=== PATIENT | female | born 1950 | race Caucasian/White ===

== ENCOUNTER → 2018-02-08 09:42 | Outpatient (CLI) | payer OTHER, SELFPAY ==
--- NOTE | 2018-02-08 | DI.MG.S_ITS ---
BILATERAL DIGITAL SCREENING MAMMOGRAM 3D/2D WITH CAD: 02/08/2018 CLINICAL: Routine screening. Family history of breast cancer. Comparison is made to exams dated: 02/04/2017 mammogram, 12/12/2015 mammogram, and 03/29/2014 mammogram - [facility]. There are scattered fibroglandular elements in both breasts. Current study was also evaluated with a Computer Aided Detection (CAD) system. No significant masses, calcifications, or other findings are seen in either breast. There has been no significant interval change. IMPRESSION: NEGATIVE There is no mammographic evidence of malignancy. A 1 year screening mammogram is recommended. NOTE: For mammograms, a report in lay terms will be sent to the patient. Approximately 15% of breast malignancies will not be visualized mammographically. In the management of a palpable breast mass, a negative mammogram must not discourage biopsy of a clinically suspicious lesion. Electronically Signed By: Gerardo king/pat:02/08/2018 12:35:50 letter sent: Normal Exam ACR BI-RADS Category 1: Negative [id number]
== END ==
PROVIDERS: PCP Physician Assistant Medical
DX: Z12.31 Encounter for screening mammogram for malignant neoplasm of breast (principal); Z80.3 Family history of malignant neoplasm of breast
CPT/HCPCS: 77063; 77067

== ENCOUNTER → 2018-11-01 11:00 | Outpatient (CLI) | payer OTHER, SELFPAY ==
--- NOTE | 2018-11-01 | DI.MRI.S_ITS ---
PROCEDURE: MR LUMBAR SPINE WO CON INDICATIONS: Sacroiliitis,low back pain TECHNIQUE: Noncontrast sagittal T1 spin echo and T2 fast echo, sagittal STIR, axial T1 and T2 fast spin echo through the lumbar spine. Axial and oblique coronal T1 spin echo and STIR through the sacrum. In cases with scoliosis, additional coronal T2 fast spin echo may be performed. COMPARISON: [facility], MR, L-SPINE WITHOUT CONTRAST, 11/08/2012, 14:20. FINDINGS: Image quality: Excellent. Alignment and Curvature: There is minimal retrolisthesis at L1-L2, L2-L3, and L3-L4. Moderate levoconvex lumbar scoliosis is seen. Bone Marrow: The bone marrow is diffusely heterogeneous. No focally suspicious bone marrow lesions can be seen.. Fatty metaplasia can be seen of the sacrum. No edema can be seen involving the sacroiliac joints. Spinal Cord: Conus medullaris terminates at the L1 level. Visualized cord demonstrates normal signal and size. Paraspinous Soft Tissues: No paravertebral masses. T12-L1: Moderate loss of disc height is seen. Loss of disc signal is seen. Zmrc-ee-qrzayxjd disc bulge is seen at this level. No significant neural foraminal or central canal narrowing can be seen. When comparison is made with the prior examination, these findings are similar. L1-L2: Mild to moderate loss of disc height and disc signal are seen. Moderate disc bulge is seen, which is eccentric to the left. There is mild right-sided and no significant left-sided neural foraminal narrowing seen. Minimal to mild central canal narrowing is seen. When comparison is made with the prior examination, these findings are similar. L2-L3: Mild loss of disc height is seen. Loss of disc signal is seen. Ybmg-ly-qefvwkmp disc bulge is seen. There is mild to moderate bilateral neural foraminal narrowing seen. Mild to moderate central canal narrowing is seen. Stable from the prior study. L3-L4: The disc height is well-preserved. Loss of disc signal is seen at this level. Moderate generalized disc bulge is seen. Mild to moderate facet hypertrophy is seen. There is mild to moderate left-sided and no significant right-sided neural canal narrowing seen. Moderate central canal narrowing is seen. These imaging findings have progressed compared to the prior study. L4-L5: Mild loss of disc height is seen. Loss of disc signal is seen. Moderate generalized disc bulge is seen. Mild facet joint hypertrophy is seen. Mild bilateral neural foraminal narrowing is seen, left worse than right. Minimal central canal narrowing is seen. When comparison is made with the prior examination, these findings are similar. L5-S1: Moderate loss of disc height is seen. Loss of disc signal is seen. Moderate disc bulge is seen, which is eccentric to the left. Gcub-eg-yiaaceul facet hypertrophy is seen. There is moderate right-sided and moderate to severe left-sided neural foraminal narrowing seen. There is a degree of compression seen upon the exiting left L5 nerve root. No significant central canal narrowing is seen. When comparison is made with the prior examination, these findings are similar. Sacrum: Sacral neural foramina appear normal throughout. Superior to the piriformis muscles, the pre-plexal structures appear normal, including the lumbosacral trunk and S1 root. Just anterior to the piriformis muscles, the sacral plexus proper demonstrates normal morphology (lumbosacral trunk, S1 to S3 nerve roots). Inferior to the piriformis muscles, the sciatic nerves appear normal. IMPRESSION: Multiple levels of lumbar spine degenerative change are seen, which are mildly progressed at L3-L4, yet otherwise appear similar to 2013. The bone marrow is diffusely heterogeneous, without focally suspicious lesions identified. Moderate levoconvex thoracolumbar scoliosis. No significant sacral abnormality can be seen. Dictated by: Larry Reyes M.D. on 11/01/2018 at 11:55 Approved by: Larry Reyes M.D. on 11/01/2018 at 12:02
== END ==
PROVIDERS: PCP Family Medicine Geriatric Medicine; Referring Provider Dentist Orthodontics and Dentofacial Orthopedics; Visit Provider Physician Assistant Medical
DX: M46.1 Sacroiliitis, not elsewhere classified (principal); M54.5 Low back pain; M47.816 Spondylosis without myelopathy or radiculopathy, lumbar region; M41.85 Other forms of scoliosis, thoracolumbar region
CPT/HCPCS: 72148

== ENCOUNTER 2019-05-02 09:45 | Outpatient (RCR) | payer MEDICARE, SELFPAY ==
--- NOTE | 2019-03-16 16:00 | PT.OIE ---
Current Diagnoses Mixed incontinence (03/16/19) Past Medical History (Last Updated 06/19/18 @ 10:58 by Balbir Candelaria MD) Fibromyalgia (Acute) Osteoarthrosis (Acute) Past Surgical History (Last Updated 06/19/18 @ 10:59 by Balbir Candelaria MD) History of hip replacement (Acute) History of knee replacement (Acute) S/P total abdominal hysterectomy and bilateral salpingo-oophorectomy Status post appendectomy Visit Care Team Role Provider Type Mehnaz Max MD Attending Provider Physician Primary Care Provider Specialty: Family Practice Address: [facility] [address], [address] [place] [address], [place], [address] Email: [email or web address] Initial Evaluation PT-OP-A Visit Information Start: 03/16/19 12:59 Freq: Status: Active Protocol: Document 03/16/19 15:32 EG (Rec: 03/16/19 16:12 EG [email or web address]) Out-Patient Physical Therapy Visit Information Visit Information Visit Type Initial Evaluation Visit Start Time 11:00 Visit Stop Time 12:00 Total Visit Minutes 60 Visit Number 1 Evaluation Information Evaluation Date 03/16/19 PT-OP-B Current Condition Start: 03/16/19 12:59 Freq: Status: Active Protocol: Document 03/16/19 15:32 EG (Rec: 03/16/19 16:12 EG [email or web address]) Current Condition History of Current Condition Onset Date August 2018 Current Complaints Urinary Urge Incontinence and Fecal incontinence History of Current Condition Patient is a 68 year old female who reports to physical therapy for having frequent urination urges in the past couple of months. The patient reports getting multiple UTI's in October and did not know what they were coming from. She is currently sexually active and has been for years and had never had that problem . She has reported urinary incontinence in the past after having knee and hip surgery but this has always gone away. After the UTI's the patient had increased urge to void and this has continued until now with a frequency (with leakage ) of 3-5x a day and around 3x per night. The patient reports that running water does increase urge to go to the bathroom and walking 18-20 feet causes her to leak all the way to the bathroom. The patient has frequent leaks of urine where she does need to change her clothes because the leak was that large. The patient also reports hacing the sensation of not fully emptying but has a steady stream of urine that lasts greater than 10 seconds each time she voids. The patient reports that fecal incontinence seemed to start after she had a colonoscopy a couple months ago and since then she has had it here and there with last report of leakage last week. She has not figured out what is causing this and sometimes does not feel when this leakage happens . The patient also reports having an urge to have a BM when having sexual intercourse . The patient then reported to the MD after the UTI and had a cystoscopy to rule out bladder cancer. The patient also had an US done in early november to check position of bladder. Patient has a history of a hysterectomy with oophorectomy as well as a bladder sling almost 30 years ago. After ruling out cancer, [facility] and was told to strengthen pelvic floor. Her insurance changed and had to change to another physical therapist. She did buy Attain (device for pelvic floor biofeedback and NMES) and this seems to be helping with urge since starting this 3 weeks ago. Patient is currently on the Keto Diet and has lost 21 pounds in the last month. Patient also reports history of childhood trauma. Patient plans on seeing another Urologist in the coming weeks. Prior Treatments and Tests Antibiotics for UTI D-mannose and Cranberry for UTI prevention Cystoscopy Core Physio Pelvic Floor PT Attain (biofeedback NMES) US of bladder placement Future Testing and Treatments Planned See Urologist Treatment Goals Patient/Caregiver Goals Free of incontinence Prior Functional Status Baseline Function- ADL's Independent Baseline Function- Mobility Independent Baseline Function- Gait I Baseline Function- Work/School Homemaker Baseline Function- Recreation/Hobbies I Current Functional Impairments (Reported) Functional Limitations- ADL's Urge for BM with sexual intercourse Functional Limitations- Recreation/ Frequent disturbance through Hobbies day when participating in hobbies due to need to change clothes because of urinary leakage Personal Factors Other Personal Factors That May Effect History of Fibromyalgia Therapy/Recovery History of childhood trauma Arthritis Depression Headaches Thyroid Disorder PT-OP-C Subjective Start: 03/16/19 12:59 Freq: Status: Active Protocol: Document 03/16/19 15:32 EG (Rec: 03/16/19 16:12 EG [email or web address]) Patient Questionnaires Pelvic Pain and Urgency/Frequency Patient Symptom Scale Pelvic Pain Score 18 OP-PT Pain Assessment Pain Assessment Grid Paper Pain Assessment Grid Completed Yes: 4 for Flank Pain; 7 for SIJ pain PT-OP-I Pelvic Floor Start: 03/16/19 12:59 Freq: Status: Active Protocol: Document 03/16/19 11:15 AMB (Rec: 03/16/19 16:10 AMB [email or web address]) Pelvic Floor Assessment Urine Pelvic Floor Surgery Yes: hysterectomy, oophorectomy, bladder sling Urinary Symptoms Urge Sensation,Dribbling After Urination Leakage Size Large Leakage Cause Urge Other Leakage Causes walking to the toilet Leaks Per Day 5 Nocturia 3 Pads Used In 24 Hours brings a change of clothes Bowel Bowel Symptoms Fecal Leakage Other Bowel Symptoms intermittent, difficulty holding back gas, denies current constipation Pelvic Clock Pelvic Clock 3-6 Tenderness Pelvic Clock 6-9 Tenderness Prolapse Rectocele Grade 1 Perineal Descent Resting Absent Bearing Present Contraction Ability Voluntary Contraction Weak Voluntary Relaxation Moderate Manual Muscle Testing Left 2 Manual Muscle Testing Right 2 Manual Muscle Testing Anterior 2 Manual Muscle Testing Posterior 2 Muscle Endurance (Seconds) 5 Number of Quick Contractions In 10 5 Seconds Comments Pelvic Floor Comments Pressure with palpation on posterior wall of vagina, but no specific tenderness PT-OP-T Assessment and Plan Start: 03/16/19 12:59 Freq: Status: Active Protocol: Document 03/16/19 11:15 AMB (Rec: 03/18/19 11:38 AMB [email or web address]) Physical Therapy Assessment Rehab Potential Rehabilitation Potential Good Evaluation Complexity Number of Personal Factors/Comorbidities 3 or More Number of Body Systems Impaired 3 Clinical Presentation at Evaluation Evolving Impairments Impairments Activity Tolerance,Functional Activities,Strength Goals Two Impairment Continence- fecal Short Term Goal (STG) Lyndsey will improve her pelvic floor strength to 3/5 in all planes. STG Duration 4 weeks Housekeeping Room Inspector Goal (LTG) Lyndsey will be able to contract her pelvic floor for 10 seconds in standing to help prevent an incontinent episode. LTG Duration 8 weeks One Impairment Continence- urge Short Term Goal (STG) Lyndsey will use urge suppression techniques to leak urine 2x/day or less. STG Duration 4 weeks Housekeeping Room Inspector Goal (LTG) Lyndsey will decrease her nocturia to 2x/night or less. LTG Duration 8 weeks Assessment Summary Assessment Lyndsey presents with urge urinary incontinence 30 years s/p bladder sling surgery but with recent recurrent UTIs. She also reports infrequent small incontinence of feces which does not appear to be urge related. She did have pelvic floor weakness, most notably at levator ani in comparison to her more superficial musculature. She will benefit from instruction in pelvic floor strengthening and urge reduction. Physical Therapy Plan Frequency and Duration Frequency of Treatment 1x/Week Duration of Treatment 8 weeks Plan of Care Start Date 03/16/19 Plan of Care End Date 05/11/19 Therapeutic Interventions Therapeutic Interventions Home Exercise Program,Manual Therapy,Neuromuscular Re- education,Self-Care/Home Management,Therapeutic Activities,Therapeutic Exercises Modalities Biofeedback,Electric Stimulation Next Visit Focus/Plan Next Note Type Treatment Note Next Visit Plan Begin with sEMG, follow up on progress with urge reduction
--- NOTE | 2019-03-18 11:40 | PT.OPPOC ---
Physical, Occupational & Speech Therapy At [facility] Current Diagnoses Mixed incontinence (03/16/19) Visit Care Team Role Provider Type Mehnaz Max MD Attending Provider Physician Primary Care Provider Specialty: Family Practice Address: [facility] [address], [address] [place] [address], [place], [address] Email: [email or web address] Plan Of Care PT-OP-T Assessment and Plan Start: 03/16/19 12:59 Freq: Status: Active Protocol: Document 03/16/19 11:15 AMB (Rec: 03/18/19 11:38 AMB [email or web address]) Physical Therapy Assessment Rehab Potential Rehabilitation Potential Good Evaluation Complexity Number of Personal Factors/Comorbidities 3 or More Number of Body Systems Impaired 3 Clinical Presentation at Evaluation Evolving Impairments Impairments Activity Tolerance,Functional Activities,Strength Goals Two Impairment Continence- fecal Short Term Goal (STG) Lyndsey will improve her pelvic floor strength to 3/5 in all planes. STG Duration 4 weeks Front End Mechanic Goal (LTG) Lyndsey will be able to contract her pelvic floor for 10 seconds in standing to help prevent an incontinent episode. LTG Duration 8 weeks One Impairment Continence- urge Short Term Goal (STG) Lyndsey will use urge suppression techniques to leak urine 2x/day or less. STG Duration 4 weeks Front End Mechanic Goal (LTG) Lyndsey will decrease her nocturia to 2x/night or less. LTG Duration 8 weeks Assessment Summary Assessment Lyndsey presents with urge urinary incontinence 30 years s/p bladder sling surgery but with recent recurrent UTIs. She also reports infrequent small incontinence of feces which does not appear to be urge related. She did have pelvic floor weakness, most notably at levator ani in comparison to her more superficial musculature. She will benefit from instruction in pelvic floor strengthening and urge reduction. Physical Therapy Plan Frequency and Duration Frequency of Treatment 1x/Week Duration of Treatment 8 weeks Plan of Care Start Date 03/16/19 Plan of Care End Date 05/11/19 Therapeutic Interventions Therapeutic Interventions Home Exercise Program,Manual Therapy,Neuromuscular Re- education,Self-Care/Home Management,Therapeutic Activities,Therapeutic Exercises Modalities Biofeedback,Electric Stimulation Next Visit Focus/Plan Next Note Type Treatment Note Next Visit Plan Begin with sEMG, follow up on progress with urge reduction Plan of Care Dates Plan of Care Start Date 03/16/19 Plan of Care End Date 05/11/19 Electronically Signed by: Page Hatch, PT 03/18/19 [id number] Please Sign and Return: I have reviewed this Plan of Care and certify that the skilled therapy services above are required to meet the patient?s needs. Physician Signature Date Printed Name and Credentials Clinical Instructor Signature Printed Name and Credentials
--- NOTE | 2019-03-19 16:08 | PT.OTN ---
Current Diagnoses Mixed incontinence (03/19/19) Physical Therapy Treatment Note PT-OP-A Visit Information Start: 03/16/19 12:59 Freq: Status: Active Protocol: Document 03/19/19 10:25 EG (Rec: 03/19/19 15:39 EG [email or web address]) Out-Patient Physical Therapy Visit Information Visit Information Visit Type Treatment Note Visit Start Time 09:45 Visit Stop Time 10:32 Total Visit Minutes 47 Visit Number 2 PT-OP-B Current Condition Start: 03/16/19 12:59 Freq: Status: Active Protocol: Document 03/16/19 15:32 EG (Rec: 03/16/19 16:12 EG [email or web address]) Current Condition History of Current Condition Onset Date August 2018 Current Complaints Urinary Urge Incontinence and Fecal incontinence History of Current Condition Patient is a 68 year old female who reports to physical therapy for having frequent urination urges in the past couple of months. The patient reports getting multiple UTI's in October and did not know what they were coming from. She is currently sexually active and has been for years and had never had that problem . She has reported urinary incontinence in the past after having knee and hip surgery but this has always gone away. After the UTI's the patient had increased urge to void and this has continued until now with a frequency (with leakage ) of 3-5x a day and around 3x per night. The patient reports that running water does increase urge to go to the bathroom and walking 18-20 feet causes her to leak all the way to the bathroom. The patient has frequent leaks of urine where she does need to change her clothes because the leak was that large. The patient also reports hacing the sensation of not fully emptying but has a steady stream of urine that lasts greater than 10 seconds each time she voids. The patient reports that fecal incontinence seemed to start after she had a colonoscopy a couple months ago and since then she has had it here and there with last report of leakage last week. She has not figured out what is causing this and sometimes does not feel when this leakage happens . The patient also reports having an urge to have a BM when having sexual intercourse . The patient then reported to the MD after the UTI and had a cystoscopy to rule out bladder cancer. The patient also had an US done in early november to check position of bladder. Patient has a history of a hysterectomy with oophorectomy as well as a bladder sling almost 30 years ago. After ruling out cancer, [facility] and was told to strengthen pelvic floor. Her insurance changed and had to change to another physical therapist. She did buy Attain (device for pelvic floor biofeedback and NMES) and this seems to be helping with urge since starting this 3 weeks ago. Patient is currently on the Keto Diet and has lost 21 pounds in the last month. Patient also reports history of childhood trauma. Patient plans on seeing another Urologist in the coming weeks. Prior Treatments and Tests Antibiotics for UTI D-mannose and Cranberry for UTI prevention Cystoscopy [facility]io Pelvic Floor PT Attain (biofeedback NMES) US of bladder placement Future Testing and Treatments Planned See Urologist Treatment Goals Patient/Caregiver Goals Free of incontinence Prior Functional Status Baseline Function- ADL's Independent Baseline Function- Mobility Independent Baseline Function- Gait I Baseline Function- Work/School Homemaker Baseline Function- Recreation/Hobbies I Current Functional Impairments (Reported) Functional Limitations- ADL's Urge for BM with sexual intercourse Functional Limitations- Recreation/ Frequent disturbance through Hobbies day when participating in hobbies due to need to change clothes because of urinary leakage Personal Factors Other Personal Factors That May Effect History of Fibromyalgia Therapy/Recovery History of childhood trauma Arthritis Depression Headaches Thyroid Disorder PT-OP-C Subjective Start: 03/16/19 12:59 Freq: Status: Active Protocol: Document 03/19/19 10:25 EG (Rec: 03/19/19 15:39 EG [email or web address]) OP-PT Subjective Patient Comments Patient Comments Patient reported that after taking her medication she feels like her urge and leaks are less. She has been taking the medication since November and she has started to take only 1 dose recently. She took a dose last night and did not have to wake up and urinate until 5:30 this morning. She did report a leak that required her to change her clothes between 5:30a and 7: 00a. Patient wants to see what the urge incontinence is like for her without medication. PT-OP-I Pelvic Floor Start: 03/16/19 12:59 Freq: Status: Active Protocol: Document 03/16/19 11:15 AMB (Rec: 03/16/19 16:10 AMB [email or web address]) Pelvic Floor Assessment Urine Pelvic Floor Surgery Yes: hysterectomy, oophorectomy, bladder sling Urinary Symptoms Urge Sensation,Dribbling After Urination Leakage Size Large Leakage Cause Urge Other Leakage Causes walking to the toilet Leaks Per Day 5 Nocturia 3 Pads Used In 24 Hours brings a change of clothes Bowel Bowel Symptoms Fecal Leakage Other Bowel Symptoms intermittent, difficulty holding back gas, denies current constipation Pelvic Clock Pelvic Clock 3-6 Tenderness Pelvic Clock 6-9 Tenderness Prolapse Rectocele Grade 1 Perineal Descent Resting Absent Bearing Present Contraction Ability Voluntary Contraction Weak Voluntary Relaxation Moderate Manual Muscle Testing Left 2 Manual Muscle Testing Right 2 Manual Muscle Testing Anterior 2 Manual Muscle Testing Posterior 2 Muscle Endurance (Seconds) 5 Number of Quick Contractions In 10 5 Seconds Comments Pelvic Floor Comments Pressure with palpation on posterior wall of vagina, but no specific tenderness PT-OP-Q Treatments Start: 03/16/19 12:59 Freq: Status: Active Protocol: Document 03/19/19 10:25 EG (Rec: 03/19/19 15:39 EG [email or web address]) Neuro Re-Education Treatment Other Activities Biofeedback Details Pelvic Floor Biofeedback Reps/Duration 30 min Comments Completed resting baseline, performed 5 sec hold with 10 sec rest, performed 10 sec hold with 10 sec rest, performed quick flicks 10x. Self-Care/Home Management Treatment Education Patient Education Home Exercise Program Other Education gave patient urge reduction technique education. Clarified questions on urge and fluid intake. PT-OP-T Assessment and Plan Start: 03/16/19 12:59 Freq: Status: Active Protocol: Document 03/19/19 10:25 AMB (Rec: 03/19/19 10:26 AMB [id number]) Physical Therapy Assessment Assessment Summary Assessment Pt did well with biofeedback 18.7 max with quick flicks with resting tone of 1.3. Pt has not tried urge reduction techniques too much, because only one leak in last couple days. Physical Therapy Plan Next Visit Focus/Plan Next Note Type Treatment Note Next Visit Plan Progress HEP: working into seated/standing, adding in PF contract with body movement as tolerated IPage, DPT, supervised all treatment performed by, and agreed with the plan of care, as performed by Oneyda Garcia, SPT.
--- NOTE | 2019-04-04 16:00 | PT.OTN ---
Current Diagnoses Mixed incontinence (04/04/19) Physical Therapy Treatment Note PT-OP-A Visit Information Start: 03/16/19 12:59 Freq: Status: Active Protocol: Document 04/04/19 10:00 EG (Rec: 04/04/19 12:56 EG [email or web address]) Out-Patient Physical Therapy Visit Information Visit Information Visit Type Treatment Note Visit Start Time 10:00 Visit Stop Time 10:32 Total Visit Minutes 32 Visit Number 3 PT-OP-B Current Condition Start: 03/16/19 12:59 Freq: Status: Active Protocol: Document 03/16/19 15:32 EG (Rec: 03/16/19 16:12 EG [email or web address]) Current Condition History of Current Condition Onset Date August 2018 Current Complaints Urinary Urge Incontinence and Fecal incontinence History of Current Condition Patient is a 68 year old female who reports to physical therapy for having frequent urination urges in the past couple of months. The patient reports getting multiple UTI's in October and did not know what they were coming from. She is currently sexually active and has been for years and had never had that problem . She has reported urinary incontinence in the past after having knee and hip surgery but this has always gone away. After the UTI's the patient had increased urge to void and this has continued until now with a frequency (with leakage ) of 3-5x a day and around 3x per night. The patient reports that running water does increase urge to go to the bathroom and walking 18-20 feet causes her to leak all the way to the bathroom. The patient has frequent leaks of urine where she does need to change her clothes because the leak was that large. The patient also reports hacing the sensation of not fully emptying but has a steady stream of urine that lasts greater than 10 seconds each time she voids. The patient reports that fecal incontinence seemed to start after she had a colonoscopy a couple months ago and since then she has had it here and there with last report of leakage last week. She has not figured out what is causing this and sometimes does not feel when this leakage happens . The patient also reports having an urge to have a BM when having sexual intercourse . The patient then reported to the MD after the UTI and had a cystoscopy to rule out bladder cancer. The patient also had an US done in early november to check position of bladder. Patient has a history of a hysterectomy with oophorectomy as well as a bladder sling almost 30 years ago. After ruling out cancer, patient reported to [facility] and got an internal exam and was told to strengthen pelvic floor. Her insurance changed and had to change to another physical therapist. She did buy Attain (device for pelvic floor biofeedback and NMES) and this seems to be helping with urge since starting this 3 weeks ago. Patient is currently on the Keto Diet and has lost 21 pounds in the last month. Patient also reports history of childhood trauma. Patient plans on seeing another Urologist in the coming weeks. Prior Treatments and Tests Antibiotics for UTI D-mannose and Cranberry for UTI prevention Cystoscopy Core Physio Pelvic Floor PT Attain (biofeedback NMES) US of bladder placement Future Testing and Treatments Planned See Urologist Treatment Goals Patient/Caregiver Goals Free of incontinence Prior Functional Status Baseline Function- ADL's Independent Baseline Function- Mobility Independent Baseline Function- Gait I Baseline Function- Work/School Homemaker Baseline Function- Recreation/Hobbies I Current Functional Impairments (Reported) Functional Limitations- ADL's Urge for BM with sexual intercourse Functional Limitations- Recreation/ Frequent disturbance through Hobbies day when participating in hobbies due to need to change clothes because of urinary leakage Personal Factors Other Personal Factors That May Effect History of Fibromyalgia Therapy/Recovery History of childhood trauma Arthritis Depression Headaches Thyroid Disorder PT-OP-C Subjective Start: 03/16/19 12:59 Freq: Status: Active Protocol: Document 04/04/19 10:00 EG (Rec: 04/04/19 12:56 EG [email or web address]) OP-PT Subjective Patient Comments Patient Comments Patient was late due to taxi schedule. She repots that she is doing okay but is still taking her medication and still has to void at night even if she has a small amount of liquid before bed. Patient has not had any leaks or soiled her undergarments since last appointment. She does time herself when voiding and will go to the bathroom even when she doesn't have to because she doesn't think she can hold it for a [address] if she had to go. Patient has also been using her NMES machine but doesn't know if she is doing it correctly. She feels like the exercises are going well and she doesn't have any trouble doing the kegels but still doesn't know if she is using the deeper muscles. PT-OP-I Pelvic Floor Start: 03/16/19 12:59 Freq: Status: Active Protocol: Document 03/16/19 11:15 AMB (Rec: 03/16/19 16:10 AMB [email or web address]) Pelvic Floor Assessment Urine Pelvic Floor Surgery Yes: hysterectomy, oophorectomy, bladder sling Urinary Symptoms Urge Sensation,Dribbling After Urination Leakage Size Large Leakage Cause Urge Other Leakage Causes walking to the toilet Leaks Per Day 5 Nocturia 3 Pads Used In 24 Hours brings a change of clothes Bowel Bowel Symptoms Fecal Leakage Other Bowel Symptoms intermittent, difficulty holding back gas, denies current constipation Pelvic Clock Pelvic Clock 3-6 Tenderness Pelvic Clock 6-9 Tenderness Prolapse Rectocele Grade 1 Perineal Descent Resting Absent Bearing Present Contraction Ability Voluntary Contraction Weak Voluntary Relaxation Moderate Manual Muscle Testing Left 2 Manual Muscle Testing Right 2 Manual Muscle Testing Anterior 2 Manual Muscle Testing Posterior 2 Muscle Endurance (Seconds) 5 Number of Quick Contractions In 10 5 Seconds Comments Pelvic Floor Comments Pressure with palpation on posterior wall of vagina, but no specific tenderness PT-OP-Q Treatments Start: 03/16/19 12:59 Freq: Status: Active Protocol: Document 04/04/19 10:00 EG (Rec: 04/04/19 14:42 EG [email or web address]) Therapeutic Exercises Sitting Exercises Hip adduction with pelvic floor contraction Sitting Exercise Name Hip adduction with pelvic floor contraction Resistance pilates ball Reps/Minutes 10x Comments verbal cues on coordination between hip movement and pelvic floor contract Hip abduction with pelvic floor contraction Sitting Exercise Name Hip abduction with pelvic floor contraction Resistance pink TB Reps/Minutes 10x Comments verbal cues on coordination between hip movement and pelvic floor contract Neuro Re-Education Treatment Other Activities Biofeedback Details Pelvic Floor Biofeedback Reps/Duration 10 min Comments Completed resting baseline, performed 5 sec hold with 10 sec rest, performed 10 sec hold with 10 sec rest, performed quick flicks 10x. 32 .8 max for quick flicks, 28 long holds PT-OP-T Assessment and Plan Start: 03/16/19 12:59 Freq: Status: Active Protocol: Document 04/04/19 10:00 EG (Rec: 04/04/19 14:42 EG [email or web address]) Physical Therapy Assessment Assessment Summary Assessment Lyndsey's symptoms are improving and she has not had as many functional limitations due to uncontrolled voiding in the last 2 weeks. The patient did have trouble with coordination of breath and pelvic floor contraction and this should be continually worked on to help with isolation of pelvic floor muscles to help with control when an urge does occur. Patient is currently reliant on her medication and would like to not be using it to see what her symptoms are. Be sure to assess how this is going. Physical Therapy Plan Frequency and Duration Frequency of Treatment 1x/Week Duration of Treatment 8 weeks Plan of Care Start Date 03/16/19 Plan of Care End Date 05/11/19 Next Visit Focus/Plan Next Note Type Treatment Note Next Visit Plan Follow up on medication usage. Assess HEP and progress movement in to standing with PF contraction Page Moon DPT, supervised all treatment performed by, and agreed with the plan of care, as performed by BLANCA Perez.
--- NOTE | 2019-04-11 16:15 | PT.OTN ---
Current Diagnoses Mixed incontinence (04/11/19) Physical Therapy Treatment Note PT-OP-A Visit Information Start: 03/16/19 12:59 Freq: Status: Active Protocol: Document 04/11/19 09:47 EG (Rec: 04/11/19 15:59 EG [id number]) Out-Patient Physical Therapy Visit Information Visit Information Visit Type Treatment Note Visit Start Time 09:47 Visit Stop Time 10:30 Total Visit Minutes 43 Visit Number 4 Number of OVERNIGHT CAREGIVER Visits 0 PT-OP-B Current Condition Start: 03/16/19 12:59 Freq: Status: Active Protocol: Document 03/16/19 15:32 EG (Rec: 03/16/19 16:12 EG [email or web address]) Current Condition History of Current Condition Onset Date August 2018 Current Complaints Urinary Urge Incontinence and Fecal incontinence History of Current Condition Patient is a 68 year old female who reports to physical therapy for having frequent urination urges in the past couple of months. The patient reports getting multiple UTI's in October and did not know what they were coming from. She is currently sexually active and has been for years and had never had that problem . She has reported urinary incontinence in the past after having knee and hip surgery but this has always gone away. After the UTI's the patient had increased urge to void and this has continued until now with a frequency (with leakage ) of 3-5x a day and around 3x per night. The patient reports that running water does increase urge to go to the bathroom and walking 18-20 feet causes her to leak all the way to the bathroom. The patient has frequent leaks of urine where she does need to change her clothes because the leak was that large. The patient also reports hacing the sensation of not fully emptying but has a steady stream of urine that lasts greater than 10 seconds each time she voids. The patient reports that fecal incontinence seemed to start after she had a colonoscopy a couple months ago and since then she has had it here and there with last report of leakage last week. She has not figured out what is causing this and sometimes does not feel when this leakage happens . The patient also reports having an urge to have a BM when having sexual intercourse . The patient then reported to the MD after the UTI and had a cystoscopy to rule out bladder cancer. The patient also had an US done in early november to check position of bladder. Patient has a history of a hysterectomy with oophorectomy as well as a bladder sling almost 30 years ago. After ruling out cancer, patient reported to [facility] and got an internal exam and was told to strengthen pelvic floor. Her insurance changed and had to change to another physical therapist. She did buy Attain (device for pelvic floor biofeedback and NMES) and this seems to be helping with urge since starting this 3 weeks ago. Patient is currently on the Keto Diet and has lost 21 pounds in the last month. Patient also reports history of childhood trauma. Patient plans on seeing another Urologist in the coming weeks. Prior Treatments and Tests Antibiotics for UTI D-mannose and Cranberry for UTI prevention Cystoscopy Core Physio Pelvic Floor PT Attain (biofeedback NMES) US of bladder placement Future Testing and Treatments Planned See Urologist Treatment Goals Patient/Caregiver Goals Free of incontinence Prior Functional Status Baseline Function- ADL's Independent Baseline Function- Mobility Independent Baseline Function- Gait I Baseline Function- Work/School Homemaker Baseline Function- Recreation/Hobbies I Current Functional Impairments (Reported) Functional Limitations- ADL's Urge for BM with sexual intercourse Functional Limitations- Recreation/ Frequent disturbance through Hobbies day when participating in hobbies due to need to change clothes because of urinary leakage Personal Factors Other Personal Factors That May Effect History of Fibromyalgia Therapy/Recovery History of childhood trauma Arthritis Depression Headaches Thyroid Disorder PT-OP-C Subjective Start: 03/16/19 12:59 Freq: Status: Active Protocol: Document 04/11/19 09:47 EG (Rec: 04/11/19 15:59 EG [id number]) OP-PT Subjective Patient Comments Patient Comments Patient reported that she has not had any leaks in the past week. She is still taking her medication and is looking forward to weaning off of this . She is going to the bathroom every 2 hours during the evening and is woken up from the urge to go. She is able to make it to the bathroom when she has the urge but will start experiencing with stopping fluid intake at 7: 30pm. Patient also reported that she was not able to do the band exercise this past week because she did not have a band like she thought that she did. Overall, patient feels that she is improving. Patient Reported Progress Improving PT-OP-I Pelvic Floor Start: 03/16/19 12:59 Freq: Status: Active Protocol: Document 03/16/19 11:15 AMB (Rec: 03/16/19 16:10 AMB [email or web address]) Pelvic Floor Assessment Urine Pelvic Floor Surgery Yes: hysterectomy, oophorectomy, bladder sling Urinary Symptoms Urge Sensation,Dribbling After Urination Leakage Size Large Leakage Cause Urge Other Leakage Causes walking to the toilet Leaks Per Day 5 Nocturia 3 Pads Used In 24 Hours brings a change of clothes Bowel Bowel Symptoms Fecal Leakage Other Bowel Symptoms intermittent, difficulty holding back gas, denies current constipation Pelvic Clock Pelvic Clock 3-6 Tenderness Pelvic Clock 6-9 Tenderness Prolapse Rectocele Grade 1 Perineal Descent Resting Absent Bearing Present Contraction Ability Voluntary Contraction Weak Voluntary Relaxation Moderate Manual Muscle Testing Left 2 Manual Muscle Testing Right 2 Manual Muscle Testing Anterior 2 Manual Muscle Testing Posterior 2 Muscle Endurance (Seconds) 5 Number of Quick Contractions In 10 5 Seconds Comments Pelvic Floor Comments Pressure with palpation on posterior wall of vagina, but no specific tenderness PT-OP-Q Treatments Start: 03/16/19 12:59 Freq: Status: Active Protocol: Document 04/11/19 09:47 EG (Rec: 04/11/19 15:59 EG [id number]) Therapeutic Exercises Sitting Exercises Hip adduction with pelvic floor contraction Sitting Exercise Name Hip adduction with pelvic floor contraction Resistance pilates ball Reps/Minutes 10x Comments coordinated with breath - education and 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 Timing on fluid intake and fluid retention. Clarified questions on diagnosis and on coordination/ endurance/strength of pelvic floor musculature. PT-OP-T Assessment and Plan Start: 03/16/19 12:59 Freq: Status: Active Protocol: Document 04/11/19 09:47 EG (Rec: 04/11/19 15:59 EG [id number]) Physical Therapy Assessment Assessment Summary Assessment Patient's functional symptoms continue to improve with no leakage in the past 2 weeks. Patient does still struggle with coordination of pelvic floor contraction when doing dual movements involving abdomen and glutes but is continuing to improve with performing these exercises. Patient does still struggle with urge frequency at night was educated on importance of timing when taking in fluids. Physical Therapy Plan Frequency and Duration Frequency of Treatment 1x/Week Duration of Treatment 8 weeks Plan of Care Start Date 03/16/19 Plan of Care End Date 05/11/19 Next Visit Focus/Plan Next Note Type Treatment Note Next Visit Plan Give patient increased standing exercises to do at home. Plan on discharge in 2 visits.
--- NOTE | 2019-04-16 14:07 | PT.OTN ---
Current Diagnoses Mixed incontinence (04/16/19) Physical Therapy Treatment Note PT-OP-A Visit Information Start: 03/16/19 12:59 Freq: Status: Active Protocol: Document 04/16/19 11:15 EG (Rec: 04/16/19 12:44 EG [email or web address]) Out-Patient Physical Therapy Visit Information Visit Information Visit Type Treatment Note Visit Start Time 11:15 Visit Stop Time 12:05 Total Visit Minutes 50 Visit Number 5 Number of GEOLOGICAL ENGINEERING TEACHER Visits 0 PT-OP-B Current Condition Start: 03/16/19 12:59 Freq: Status: Active Protocol: Document 03/16/19 15:32 EG (Rec: 03/16/19 16:12 EG [email or web address]) Current Condition History of Current Condition Onset Date August 2018 Current Complaints Urinary Urge Incontinence and Fecal incontinence History of Current Condition Patient is a 68 year old female who reports to physical therapy for having frequent urination urges in the past couple of months. The patient reports getting multiple UTI's in October and did not know what they were coming from. She is currently sexually active and has been for years and had never had that problem . She has reported urinary incontinence in the past after having knee and hip surgery but this has always gone away. After the UTI's the patient had increased urge to void and this has continued until now with a frequency (with leakage ) of 3-5x a day and around 3x per night. The patient reports that running water does increase urge to go to the bathroom and walking 18-20 feet causes her to leak all the way to the bathroom. The patient has frequent leaks of urine where she does need to change her clothes because the leak was that large. The patient also reports hacing the sensation of not fully emptying but has a steady stream of urine that lasts greater than 10 seconds each time she voids. The patient reports that fecal incontinence seemed to start after she had a colonoscopy a couple months ago and since then she has had it here and there with last report of leakage last week. She has not figured out what is causing this and sometimes does not feel when this leakage happens . The patient also reports having an urge to have a BM when having sexual intercourse . The patient then reported to the MD after the UTI and had a cystoscopy to rule out bladder cancer. The patient also had an US done in early november to check position of bladder. Patient has a history of a hysterectomy with oophorectomy as well as a bladder sling almost 30 years ago. After ruling out cancer, patient [facility] and got an internal exam and was told to strengthen pelvic floor. Her insurance changed and had to change to another physical therapist. She did buy Attain (device for pelvic floor biofeedback and NMES) and this seems to be helping with urge since starting this 3 weeks ago. Patient is currently on the Keto Diet and has lost 21 pounds in the last month. Patient also reports history of childhood trauma. Patient plans on seeing another Urologist in the coming weeks. Prior Treatments and Tests Antibiotics for UTI D-mannose and Cranberry for UTI prevention Cystoscopy Core Physio Pelvic Floor PT Attain (biofeedback NMES) US of bladder placement Future Testing and Treatments Planned See Urologist Treatment Goals Patient/Caregiver Goals Free of incontinence Prior Functional Status Baseline Function- ADL's Independent Baseline Function- Mobility Independent Baseline Function- Gait I Baseline Function- Work/School Homemaker Baseline Function- Recreation/Hobbies I Current Functional Impairments (Reported) Functional Limitations- ADL's Urge for BM with sexual intercourse Functional Limitations- Recreation/ Frequent disturbance through Hobbies day when participating in hobbies due to need to change clothes because of urinary leakage Personal Factors Other Personal Factors That May Effect History of Fibromyalgia Therapy/Recovery History of childhood trauma Arthritis Depression Headaches Thyroid Disorder PT-OP-C Subjective Start: 03/16/19 12:59 Freq: Status: Active Protocol: Document 04/16/19 11:15 EG (Rec: 04/16/19 12:44 EG [email or web address]) OP-PT Subjective Patient Comments Patient Comments Patient reported that she had to get up 3x last night to go to the bathroom but the cat woke her up a few times. The patient has tried to limit fluid intake at night but hasn 't been that successful due to being thirsty later in the day. Patient reports that she has not had any leaks in past week and she is doing exercises but gets confused with breathing. Patient Reported Progress Improving PT-OP-I Pelvic Floor Start: 03/16/19 12:59 Freq: Status: Active Protocol: Document 03/16/19 11:15 AMB (Rec: 03/16/19 16:10 AMB [email or web address]) Pelvic Floor Assessment Urine Pelvic Floor Surgery Yes: hysterectomy, oophorectomy, bladder sling Urinary Symptoms Urge Sensation,Dribbling After Urination Leakage Size Large Leakage Cause Urge Other Leakage Causes walking to the toilet Leaks Per Day 5 Nocturia 3 Pads Used In 24 Hours brings a change of clothes Bowel Bowel Symptoms Fecal Leakage Other Bowel Symptoms intermittent, difficulty holding back gas, denies current constipation Pelvic Clock Pelvic Clock 3-6 Tenderness Pelvic Clock 6-9 Tenderness Prolapse Rectocele Grade 1 Perineal Descent Resting Absent Bearing Present Contraction Ability Voluntary Contraction Weak Voluntary Relaxation Moderate Manual Muscle Testing Left 2 Manual Muscle Testing Right 2 Manual Muscle Testing Anterior 2 Manual Muscle Testing Posterior 2 Muscle Endurance (Seconds) 5 Number of Quick Contractions In 10 5 Seconds Comments Pelvic Floor Comments Pressure with palpation on posterior wall of vagina, but no specific tenderness PT-OP-Q Treatments Start: 03/16/19 12:59 Freq: Status: Active Protocol: Document 04/16/19 11:15 EG (Rec: 04/16/19 12:44 EG [email or web address]) Gym Equipment Therapeutic Ball Marches on ball Exercise Details alternating marches Ball Size/Color red/65 inch Body Position Sitting Reps/Duration 2x5 each side Comments contraction of PF; held chair for balance support Seated bounce/hip circles with PF contraction Exercise Details seated bounce/hip circles Ball Size/Color red/65 inch Body Position Sitting Comments move each way with hip circles . Maintain PF contraction for 1 min and then relax. continue cue for breath. Therapeutic Exercises Supine Exercises TA contraction Supine Exercise Name Posterior pelvic tilt with PF contraction Reps/Minutes 10x Comments given for HEP - cue for breath and PF contraction Standing Exercises Tandem Stance with PF contraction Standing Exercise Name Bilateral tandem stance Reps/Minutes 5x each side Comments hold each rep for 3 deep breaths Sit to stand with PF contraction Standing Exercise Name Sit to stand with pelvic floor contraction Reps/Minutes 10x Comments cued breathing PT-OP-T Assessment and Plan Start: 03/16/19 12:59 Freq: Status: Active Protocol: Document 04/16/19 11:15 EG (Rec: 04/16/19 12:44 EG [email or web address]) Physical Therapy Assessment Assessment Summary Assessment Patient did well with therapy treatment today. Her urge has decreased overall and there has been no leakage in last week indicating patient has gained more control and coordination of pelvic floor musculature. Patient did well with standing exercises. Plan on discharging patient next appointment. Physical Therapy Plan Frequency and Duration Frequency of Treatment 1x/Week Duration of Treatment 8 weeks Plan of Care Start Date 03/16/19 Plan of Care End Date 05/11/19 Next Visit Focus/Plan Next Note Type Discharge Summary Next Visit Plan Assess how HEP is going. Reassess biofeedback. Page Moon, DPT, supervised all treatment performed by, and agreed with the plan of care, as performed by Oneyda Garcia, SPT.
--- NOTE | 2019-05-02 14:52 | PT.OTN ---
Current Diagnoses Mixed incontinence (05/02/19) Physical Therapy Treatment Note PT-OP-A Visit Information Start: 03/16/19 12:59 Freq: Status: Active Protocol: Document 05/02/19 09:50 EG (Rec: 05/02/19 12:43 EG [id number]) Out-Patient Physical Therapy Visit Information Visit Information Visit Type Discharge Summary Visit Start Time 09:50 Visit Stop Time 10:30 Total Visit Minutes 40 Visit Number 6 Number of ANESTHESIOLOGY TECHNOLOGIST Visits 0 PT-OP-B Current Condition Start: 03/16/19 12:59 Freq: Status: Active Protocol: Document 03/16/19 15:32 EG (Rec: 03/16/19 16:12 EG [id number]) Current Condition History of Current Condition Onset Date August 2018 Current Complaints Urinary Urge Incontinence and Fecal incontinence History of Current Condition Patient is a 68 year old female who reports to physical therapy for having frequent urination urges in the past couple of months. The patient reports getting multiple UTI's in October and did not know what they were coming from. She is currently sexually active and has been for years and had never had that problem . She has reported urinary incontinence in the past after having knee and hip surgery but this has always gone away. After the UTI's the patient had increased urge to void and this has continued until now with a frequency (with leakage ) of 3-5x a day and around 3x per night. The patient reports that running water does increase urge to go to the bathroom and walking 18-20 feet causes her to leak all the way to the bathroom. The patient has frequent leaks of urine where she does need to change her clothes because the leak was that large. The patient also reports hacing the sensation of not fully emptying but has a steady stream of urine that lasts greater than 10 seconds each time she voids. The patient reports that fecal incontinence seemed to start after she had a colonoscopy a couple months ago and since then she has had it here and there with last report of leakage last week. She has not figured out what is causing this and sometimes does not feel when this leakage happens . The patient also reports having an urge to have a BM when having sexual intercourse . The patient then reported to the MD after the UTI and had a cystoscopy to rule out bladder cancer. The patient also had an US done in early november to check position of bladder. Patient has a history of a hysterectomy with oophorectomy as well as a bladder sling almost 30 years ago. After ruling out cancer, patient [facility] to [facility] and got an internal exam and was told to strengthen pelvic floor. Her insurance changed and had to change to another physical therapist. She did buy Attain (device for pelvic floor biofeedback and NMES) and this seems to be helping with urge since starting this 3 weeks ago. Patient is currently on the Keto Diet and has lost 21 pounds in the last month. Patient also reports history of childhood trauma. Patient plans on seeing another Urologist in the coming weeks. Prior Treatments and Tests Antibiotics for UTI D-mannose and Cranberry for UTI prevention Cystoscopy Core [facility] Pelvic Floor PT Attain (biofeedback NMES) US of bladder placement Future Testing and Treatments Planned See Urologist Treatment Goals Patient/Caregiver Goals Free of incontinence Prior Functional Status Baseline Function- ADL's Independent Baseline Function- Mobility Independent Baseline Function- Gait I Baseline Function- Work/School Homemaker Baseline Function- Recreation/Hobbies I Current Functional Impairments (Reported) Functional Limitations- ADL's Urge for BM with sexual intercourse Functional Limitations- Recreation/ Frequent disturbance through Hobbies day when participating in hobbies due to need to change clothes because of urinary leakage Personal Factors Other Personal Factors That May Effect History of Fibromyalgia Therapy/Recovery History of childhood trauma Arthritis Depression Headaches Thyroid Disorder PT-OP-C Subjective Start: 03/16/19 12:59 Freq: Status: Active Protocol: Document 05/02/19 09:50 EG (Rec: 05/02/19 10:31 EG [id number]) OP-PT Subjective Patient Comments Patient Comments Patient reports that she is not taking the incontinence medications any longer, and the evening is better regarding having an urge to go in the middle of the night - it tends to depend on last fluid intake but is not getting up every 2 hours. No other instances of wetting pants. Patient states that Urologist said that she is not emptying bladder completely. First week of May she is going back to the Urologist to recheck this. She has been doing some exercises but feels uncoordinated with them at times. Patient Reported Progress Improving PT-OP-I Pelvic Floor Start: 03/16/19 12:59 Freq: Status: Active Protocol: Document 03/16/19 11:15 AMB (Rec: 03/16/19 16:10 AMB [email or web address]) Pelvic Floor Assessment Urine Pelvic Floor Surgery Yes: hysterectomy, oophorectomy, bladder sling Urinary Symptoms Urge Sensation,Dribbling After Urination Leakage Size Large Leakage Cause Urge Other Leakage Causes walking to the toilet Leaks Per Day 5 Nocturia 3 Pads Used In 24 Hours brings a change of clothes Bowel Bowel Symptoms Fecal Leakage Other Bowel Symptoms intermittent, difficulty holding back gas, denies current constipation Pelvic Clock Pelvic Clock 3-6 Tenderness Pelvic Clock 6-9 Tenderness Prolapse Rectocele Grade 1 Perineal Descent Resting Absent Bearing Present Contraction Ability Voluntary Contraction Weak Voluntary Relaxation Moderate Manual Muscle Testing Left 2 Manual Muscle Testing Right 2 Manual Muscle Testing Anterior 2 Manual Muscle Testing Posterior 2 Muscle Endurance (Seconds) 5 Number of Quick Contractions In 10 5 Seconds Comments Pelvic Floor Comments Pressure with palpation on posterior wall of vagina, but no specific tenderness PT-OP-Q Treatments Start: 03/16/19 12:59 Freq: Status: Active Protocol: Document 05/02/19 09:50 EG (Rec: 05/02/19 10:31 EG [id number]) Therapeutic Exercises Standing Exercises Tandem Stance with PF contraction Standing Exercise Name Bilateral tandem stance Reps/Minutes 5x each side Comments reviewed exercise for home Sit to stand with PF contraction Standing Exercise Name Sit to stand with pelvic floor contraction Reps/Minutes 10x Comments reviewed for home Neuro Re-Education Treatment Other Activities Biofeedback Details Pelvic Floor Biofeedback Reps/Duration 8 min Comments Completed resting baseline (1. 9), performed 5 sec hold with 10 sec rest with 23.3 max - able to return to baseline, performed quick flicks 5x. 28. 1 max for quick flicks - able to return to baseline Self-Care/Home Management Treatment Education Patient Education Home Exercise Program Other Education Reviewed urge incontinence control to continue after discharge. Reviewed home exercises and education on continual strengthening as she is on her own. Education on functional integration of PF contraction throughout the day PT-OP-T Assessment and Plan Start: 03/16/19 12:59 Freq: Status: Active Protocol: Document 05/02/19 09:50 EG (Rec: 05/02/19 10:31 EG [id number]) Physical Therapy Assessment Goals Two Impairment Continence- fecal Short Term Goal (STG) Lyndsey will improve her pelvic floor strength to 3/5 in all planes. 05/02/2019: Pelvic Floor strength is 3+/5 in all planes . Squeeze is strong and lift could continue to get stronger . STG Duration 4 weeks Manager Aviation Goal (LTG) Lyndsey will be able to contract her pelvic floor for 10 seconds in standing to help prevent an incontinent episode. 05/02/2019: Still using stimulation device at home and believes she is doing kegals correctly. She is able to hold contraction with more strength and control for >10 seconds. LTG Duration 8 weeks One Impairment Continence- urge Short Term Goal (STG) Lyndsey will use urge suppression techniques to leak urine 2x/day or less. 05/02/2019: Lyndsey is no longer having urgency incontinence throughout the day. STG Duration 4 weeks Senior Care Goal (LTG) Lyndsey will decrease her nocturia to 2x/night or less. 05/02/2019: Lyndsey is going to the bathroom in the evening much less frequently due to decreased fluid intake in the evening. She is going 1x/night the last couple nights. LTG Duration 8 weeks Assessment Summary Assessment Patient has improved significantly functionally with no more leakage or urine resulting in wetting of pants throughout the day. She has decreased the urge and can control properly when she does need to void. She is no longer taking medications and not voiding as frequently in the evening. She has met all of her goals and is not discharged from PT services. Physical Therapy Plan Discharge Physical Therapy Discharge Reasons Goals Met Discharge Comments Patient has met all of her goals which are updated above. Page Moon DPT, supervised all treatment performed by, and agreed with the plan of care, as performed by BLANCA Perez.
== END 2019-05-03 08:21 ==
LOC: PHYS 09:45
PROVIDERS: PCP Family Medicine Geriatric Medicine; Visit Provider Family Medicine Geriatric Medicine
DX: N39.46 Mixed incontinence (principal)
CPT/HCPCS: 97110; 97112; 97162; 97535

== ENCOUNTER → 2019-10-26 11:01 | Outpatient (CLI) | payer MEDICARE, SELFPAY ==
--- NOTE | 2019-10-26 | DI.MRI.S_ITS ---
PROCEDURE: MR LUMBAR SPINE WO CON INDICATIONS: Radiculopathy, lumbar region TECHNIQUE: Noncontrast sagittal T1 spin echo and T2 fast echo, sagittal STIR, axial T1 and T2 fast spin echo through the lumbar spine. In cases with scoliosis, additional coronal T2 fast spin echo may be performed. COMPARISON: [facility], , MR LUMBAR SPINE WO CON, 11/01/2018, 11:11. FINDINGS: Image quality: Excellent. Alignment and Curvature: No plain films are available for comparison, for numbering purposes. Thus, for the purposes of this examination, 5 lumbar type vertebral bodies will be presumed, as denoted on the montage panel. This should be confirmed and correlated with plain films, prior to any lumbar spinal intervention. Moderate leftward curvature of the upper lumbar spine. Mild grade 1 retrolisthesis of T12 on L1, L1 on L2, L2 on L3, and L3 on L4. Bone Marrow: Marrow is of normal overall signal. No acute vertebral body compression fractures. There is mild reactive signal within the endplates adjacent to the T12-L1, L1-L2, L2-L3, L3-L4, L4-L5, and L5-S1 intervertebral discs. Spinal Cord: Conus medullaris terminates at the lower L1 level. Visualized cord demonstrates normal signal and size. Paraspinous Soft Tissues: No paravertebral masses. Retroaortic left renal vein. L1-L2: Moderate disc height loss and desiccation. Mild diffuse disc bulge. Mild facet and ligamentum flavum hypertrophy. Mild epidural lipomatosis. Mild canal stenosis. Mild bilateral foraminal stenosis. No change. L2-L3: Moderate disc height loss and desiccation. Mild diffuse disc bulge. Mild facet and ligamentum flavum hypertrophy. Mild epidural lipomatosis. Mild canal stenosis. Mild bilateral foraminal stenosis. No change. L3-L4: Moderate disc height loss and desiccation. Mild diffuse disc bulge/osteophyte. Mild facet and ligamentum flavum hypertrophy. Mild epidural lipomatosis. Mild canal stenosis. Mild bilateral foraminal stenosis. No change. L4-L5: Moderate disc height loss and desiccation. Mild diffuse disc bulge. Mild facet and ligamentum flavum hypertrophy. Mild epidural lipomatosis. Mild canal stenosis. Mild bilateral foraminal stenosis. No change. L5-S1: Moderate disc height loss and desiccation. Mild diffuse disc bulge. Mild bilateral facet hypertrophy. Mild canal stenosis. Mild right and moderate left foraminal stenosis. No change. IMPRESSION: 1. Multilevel degenerative disc and facet disease, as well as ligamentum flavum hypertrophy and epidural lipomatosis. 2. Mild multilevel canal stenosis. 3. Multilevel foraminal stenoses, worst on the left at L5-S1, where there is moderate foraminal stenosis. Dictated by: Sara Loyd M.D. on 10/26/2019 at 12:15 Approved by: Sara Loyd M.D. on 10/26/2019 at 12:20
== END ==
PROVIDERS: PCP Physician Assistant Medical; Referring Provider Physician Assistant Medical; Visit Provider Family Medicine
DX: M51.16 Intervertebral disc disorders with radiculopathy, lumbar region (principal); M51.17 Intervertebral disc disorders with radiculopathy, lumbosacral region; M48.061 Spinal stenosis, lumbar region without neurogenic claudication; M48.07 Spinal stenosis, lumbosacral region; E88.2 Lipomatosis, not elsewhere classified
CPT/HCPCS: 72148

== ENCOUNTER → 2019-11-07 08:22 | Outpatient (CLI) | payer MEDICARE, SELFPAY ==
--- NOTE | 2019-11-07 | DI.MRI.S_ITS ---
PROCEDURE: MR SHOULDER LT WO CON INDICATIONS: Pain in left shoulder TECHNIQUE: Noncontrast oblique coronal T2 fast spin echo with fat saturation, oblique sagittal T1 spin echo and T2 fast spin echo with fat saturation, axial T1 spin echo and T2 fast spin echo with fat saturation through the shoulder. COMPARISON: None. FINDINGS: Image quality: Excellent. Rotator cuff: There is a moderate grade bursal surface and intrasubstance tear of the mid/posterior supraspinatus tendon at the humeral insertion site measuring roughly 7 mm anteroposterior. The supraspinatus, infraspinatus, and subscapularis tendons otherwise appear intact throughout. Sagittal images demonstrate no muscle atrophy. Bones and bursae: No bone marrow contusions or fractures. Subchondral cyst formation within the mid/inferior glenoid. Moderate acromioclavicular joint degeneration. The acromion demonstrates conventional anatomy, without an os acromiale. No pathologic subacromial-subdeltoid or subcoracoid bursal fluid is present. Capsule and soft tissues: Diffuse posterior labral tearing is present with a paralabral cyst posterior inferiorly. The long head of the biceps tendon demonstrates normal location and morphology. The rotator interval appears normal, without fibrosis. The coracohumeral ligament is normal in thickness. IMPRESSION: 1. Moderate grade partial thickness tearing of the supraspinatus tendon. No full-thickness rotator cuff tear. 2. Acromioclavicular joint osteoarthritis. 3. Posterior labral tearing. Dictated by: Sara Loyd M.D. on 11/07/2019 at 9:54 Approved by: Sara Loyd M.D. on 11/07/2019 at 9:56
== END ==
PROVIDERS: PCP Physician Assistant Medical; Referring Provider Physician Assistant Medical; Visit Provider Family Medicine
DX: M25.512 Pain in left shoulder (principal); M75.112 Incomplete rotator cuff tear or rupture of left shoulder, not specified as traumatic; M19.012 Primary osteoarthritis, left shoulder; S43.492A Other sprain of left shoulder joint, initial encounter
CPT/HCPCS: 73221

== ENCOUNTER 2021-01-20 10:12 | Day surgery (SDC) | payer MEDICARE, SELFPAY ==
[2021-01-20] MEDS: PROPARACAINE 0.5% OPHTH SOL 2 DROPS EYE-OP (12:26)
[2021-01-20] MEDS: CATARACT EYE COMPOUND (10 DROPS/SYRINGE) 3 DROPS EYE-OP (12:39)
--- NOTE | 2021-01-20 12:43 | PM.PREOP ---
Pre-operative Note Interval Note History & Physical reviewed/Exam performed by Physician: Yes Changes to H&P: No
--- NOTE | 2021-01-20 12:43 | PM.OP.1 ---
Operative Date/Time/Diagnoses Pre-op diagnosis: Nuclear Cataract Left eye Post-op diagnosis: same Procedure & Clinicians Same procedure as scheduled: Yes Surgeon: Den Rodriguez Anesthesia Type: MAC +/- and Sedation Operative Notes Procedure in detail: Patient brought to the operating suite. Tetracaine drops placed in the left eye. Patient was prepped and draped in sterile manner. Wire lid speculum was placed in the eye. Betadine drops were placed on the eye. This was irrigated. Lidocaine jelly was placed on the eye. A paracentesis port was created with a side-port blade. 0.1 mL 1% preservative free lidocaine was injected into the anterior chamber. The anterior chamber was deepened with viscoelastic. 2.6 mm keratome was used to create a temporal clear corneal incision. Cystotome and Utrata forceps were used to create continuous tear capsulorrhexis. Balanced salt solution was used to hydro dissect the nucleus. The phacoemulsification handpiece was inserted and the nucleus was removed using the stop and chop technique. The irrigation aspiration handpiece was inserted and the remaining cortex was removed. Anterior chamber was deepened with viscoelastic. An Parr DIB00 intraocular lens with a power of 21.0 was injected into the capsular bag. Irrigation aspiration handpiece was inserted and the remaining viscoelastic was removed. Incision was hydrated with balanced salt solution and found to be leak free with pressure with Weck-Karla sponges. 0.1 mL Vigamox injected anterior chamber. 0.3 mL Kenalog 10 mg was injected subconjunctivally. Lid speculum was removed. The patient left the operating room in excellent condition. Complications: none Post-operative Condition: stable Disposition: same day surgery
[2021-01-20 12:49] VITALS: BP 144/75; PULSE 66; RESP 18; TEMP 36.7; O2SAT 97; BMI 34.0
[2021-01-20] MEDS: HYALURONATE SODIUM 30 MG-10 MG/ML SYRINGES 1 BOX INTRAOCULA (13:10)
[2021-01-20] MEDS: MOXIFLOXACIN INJ 4 MG/0.8 ML VIAL 0.5 MG EYE-OP (13:11)
[2021-01-20] MEDS: BALANCED SALT IRRIG SOLN NO.2 500 ML, EPINEPHrine 1 MG IRR (13:11)
[2021-01-20] MEDS: TRIAMCINOLONE 50 MG/5 ML VIAL INJ (13:11)
[2021-01-20] MEDS: PHENYLEPHRINE/LIDOCAINE VIAL (OR) 0.2 ML EYE-OP (13:11)
[2021-01-20] MEDS: LIDOCAINE 2% (GLYDO) 6 ML GEL TOP (13:12)
[2021-01-20] MEDS: TETRACAINE 0.5% OPHTH DROPS 4 ML 2 DROPS EYE-OP (13:12)
[2021-01-20 13:27] VITALS: BP 135/76; PULSE 65; RESP 16; TEMP 36.4; O2SAT 95
== END 2021-01-20 13:45 | disposition home or self-care (01) ==
PROVIDERS: PCP Family Medicine; Referring Provider Ophthalmology; Visit Provider Ophthalmology
PROC: (CPT 66984; principal; 2021-01-20 12:45)
DX: H25.12 Age-related nuclear cataract, left eye (principal); M79.7 Fibromyalgia; I10 Essential (primary) hypertension; F41.9 Anxiety disorder, unspecified; E66.9 Obesity, unspecified; Z68.34 Body mass index [BMI] 34.0-34.9, adult
CPT/HCPCS: 66984; J0171; J2250; J3301

== ENCOUNTER 2021-01-27 11:17 | Day surgery (SDC) | payer MEDICARE, SELFPAY ==
[2021-01-27] MEDS: PROPARACAINE 0.5% OPHTH SOL 2 DROPS EYE-OP (11:55)
[2021-01-27] MEDS: CATARACT EYE COMPOUND (10 DROPS/SYRINGE) 3 DROPS EYE-OP (11:56)
[2021-01-27 11:57] VITALS: BP 131/72; PULSE 64; RESP 16; TEMP 36.6; O2SAT 99; BMI 31.8
--- NOTE | 2021-01-27 13:02 | PM.PREOP ---
Pre-operative Note Interval Note History & Physical reviewed/Exam performed by Physician: Yes Changes to H&P: No
--- NOTE | 2021-01-27 13:02 | PM.OP.1 ---
Operative Date/Time/Diagnoses Pre-op diagnosis: Nuclear cataract right eye Procedure & Clinicians Procedure: Cataract Surgery Same procedure as scheduled: Yes Surgeon: Den Rodriguez Anesthesia Type: MAC +/- and Sedation Operative Notes Procedure in detail: Patient brought to the operating suite. Tetracaine drops placed in the right eye. Patient was prepped and draped in sterile manner. Wire lid speculum was placed in the eye. Betadine drops were placed on the eye. This was irrigated. Lidocaine jelly was placed on the eye. A paracentesis port was created with a side-port blade. 0.1 mL 1% preservative free lidocaine was injected into the anterior chamber. The anterior chamber was deepened with viscoelastic. 2.6 mm keratome was used to create a temporal clear corneal incision. Cystotome and Utrata forceps were used to create continuous tear capsulorrhexis. Balanced salt solution was used to hydro dissect the nucleus. The phacoemulsification handpiece was inserted and the nucleus was removed using the stop and chop technique. The irrigation aspiration handpiece was inserted and the remaining cortex was removed. Anterior chamber was deepened with viscoelastic. An Parr DIB00 intraocular lens with a power of 21.0 was injected into the capsular bag. Irrigation aspiration handpiece was inserted and the remaining viscoelastic was removed. Incision was hydrated with balanced salt solution and found to be leak free with pressure with Weck-Karla sponges. 0.1 mL Vigamox injected anterior chamber. 0.3 mL Kenalog 10 mg was injected subconjunctivally. Lid speculum was removed. The patient left the operating room in excellent condition. Complications: none Post-operative Condition: stable Disposition: same day surgery
[2021-01-27] MEDS: HYALURONATE SODIUM 30 MG-10 MG/ML SYRINGES 1 BOX INTRAOCULA (13:16)
[2021-01-27] MEDS: BALANCED SALT IRRIG SOLN NO.2 500 ML, EPINEPHrine 1 MG IRR (13:17)
[2021-01-27] MEDS: TRIAMCINOLONE 50 MG/5 ML VIAL INJ (13:17)
[2021-01-27] MEDS: PHENYLEPHRINE/LIDOCAINE VIAL (OR) 0.2 ML EYE-OP (13:17)
[2021-01-27] MEDS: TETRACAINE 0.5% OPHTH DROPS 4 ML 2 DROPS EYE-OP (13:18)
[2021-01-27] MEDS: LIDOCAINE 2% (GLYDO) 6 ML GEL TOP (13:18)
[2021-01-27] MEDS: MOXIFLOXACIN INJ 4 MG/0.8 ML VIAL 0.5 MG EYE-OP (13:24)
[2021-01-27 13:28] VITALS: BP 131/72; PULSE 65; RESP 16; TEMP 36.6; O2SAT 99
== END 2021-01-27 13:46 | disposition home or self-care (01) ==
PROVIDERS: PCP Family Medicine; Referring Provider Ophthalmology; Visit Provider Ophthalmology
PROC: (CPT 66984; principal; 2021-01-27 13:15)
DX: H25.11 Age-related nuclear cataract, right eye (principal); I10 Essential (primary) hypertension; M79.7 Fibromyalgia
CPT/HCPCS: 66984; J0171; J2250; J3301